=== PATIENT | female | born 1940 | race Caucasian/White ===

== ENCOUNTER 2016-08-12 07:19 | Inpatient (IN) | payer MEDICARE, OTHER ==
[~2016-08-12] VITALS: Ht 160 cm; Wt 56.5 kg
[2016-08-12] VITALS (9 sets, daily range): BP systolic 169–202; BP diastolic 69–111; PULSE 73–138; RESP 17–20; O2SAT 94–98
[~2016-08-12 07:19] MED LIST: CREST10T PO; EVI60 PO; FISH; UBID1CAP PO
--- NOTE | 2016-08-12 07:26 | ED.REPORT ---
HPI-Stroke / CVA Aug 12, 2016 ED Provider: Juan Boyle MD 76 year old female with a history of vertigo presents to the ER accompanied by her complaining of slurred speech and right leg weakness with concern for stroke. Last known normal early yesterday evening. She states that symptoms onset with dizziness, followed by difficulty with word finding and slurred speech. Last night she could not sleep due to stress related to her symptoms. When she attempted to get up to use the bathroom around 04:00 today she was unable to get out of bed due to the weakness in her right lower extremity. Patient denies history of similar. She took 81mg ASA last night around 23:00. Nursing Notes Stated Complaint: POSSIBLE STROKE SYMPTOMS Nursing Notes Reviewed: Yes ([employer], [employer] not reconciled) Allergies: Coded Allergies: Tetanus Vaccines and Toxoid (Verified Allergy, Severe, 02/08/12) Uncoded Allergies: PENCILLEN (Allergy, Severe, 02/08/12) SULFA (Allergy, Severe, 02/08/12) Scheduled Raloxifene-Expunged Drug, Do Not Renew! (Evista-Expunged Drug, Do Not Renew!) 60 Mg Tablet 60 MG PO DAILY (Reported) Rosuvastatin-Expunged Drug, Do Not Renew! (Crestor-Expunged Drug, Do Not Renew! ) 10 Mg Tablet 10 MG PO DAILY (Reported) Miscellaneous Medications Fish Oil-Expunged Drug, Do Not Renew! (Fish Oil-Expunged Drug, Do Not Renew!) Cap (Reported) Ubidecar/Fish Oil/Elkins-3/Ilya (Coq-10 & Fish Oil Softgel) 1 Each Capsule 1 EACH PO (Reported) General Time Seen by Provider: 07:25 Chief Complaint Weakness, Slurred speech Right-sided, Leg right Hx Obtained From: Patient Arrived By: Walk-in Time last known well Early evening yesterday Sudden in Onset?: No Symptom Duration: Since onset Progression Since Onset: Gradually worsening Similar Sx Previous: No Risk Factors NIH Stroke Scale Level of Consciousness: Alert and responsive (0) Ask Month & Age: Both questions right (0) Open/Close Eyes/Hand Boiler Riveter: Performs both tasks (0) Horizontal EO Movements: None (0) Visual [place]: No visual loss (0) Facial Palsy: Normal symmetry (0) Right Arm Motor Drift (10s): No drift 10 sec (0) Left Arm Motor Drift (10s): No drift 10 sec (0) Right Leg Motor Drift (5s): No drift 5 sec (0) (Patient reports that she needs to work harder to keep leg elevated.) Left Leg Motor Drift (5s): No drift 5 sec (0) Limb Ataxia FNF/Heel-Yip: No ataxia (0) Sensation (Arms/Legs/Face): No sensory loss (0) Language Aphasia: No aphasia, normal (0) Dysarthria: No dysarthria, normal (0) ( and patient report mild slurring.) Extinction/Inattention: No exctinct/inattent (0) NIHSS Score: 0 Time NIHSS Performed: 07:31 Date NIHSS Performed: Aug 12, 2016 )( CVA Risk Stratification Age >60No EtOH use, No Hypertension, No Prior CVA/TIA, No Smoking Risk factors reviewed Past Medical History Past Medical History Paroxysmal vertigo Past Surgical History Partial thyroidectomy Smoking History Former Smoker Social History Nicorette occasionally. Alcohol Use: Denies alcohol use Ambulatory Status Independent Review of Systems Respiratory: Denies: Non-productive cough, Shortness of breath Cardiovascular: Denies: Chest pain GI: Denies: Nausea Neurologic: Reports: Confusion, Focal weakness (Right Lower Extremity), Slurred speech, Weakness, Denies: Headache Complete sys rev & neg: except as marked. Physical Exam Initial Vital Signs Vital Signs (First) Date Time Temp Pulse Resp B/P Pulse Ox O2 Delivery O2 Flow Rate FiO2 08/12/16 07:29 36.4 87 17 202/111 98 Room Air Initial VS: Reviewed, Unavailable Extremities: Vascular intact, Neuro intact, No swelling, No tenderness Psychiatric: Mood/affect normal, Behavior normal, Normal thought content General/Constitutional: Awake, Alert, Well appearing, Well developed, Well nourished Behavior: Positive: Anxious Head / Eyes: Normocephalic, PERRL, EOMI Neck: Supple, Full range of motion, No swelling, Non-tender, No carotid bruit Respiratory / Chest: Breath sounds NL, Breath sounds = bilat, No respiratory distress, No rales, No rhonchi, No wheezing Cardiovascular: Heart rate NL, Regular rhythm, Heart sounds NL, No murmurs, Peripheral circulation NL Neurologic: Oriented X3, Speech NL, No motor deficits, No sensory deficits, CN II - XII intact See NIH Stroke Scale in the Risk section of this note. Interpretation & Diagnostics Lab Results Interpretation Result Diagram: 08/12/16 0753 08/12/16 0753 Test 08/12/16 07:53 08/12/16 08:13 White Blood Count 9.5th/mm3 (3.8-10.1) Red Blood Count 4.44mil/mm3 (3.90-5.20) Hemoglobin 13.2g/dL (12.0-15.6) Hematocrit 40.1% (35.0-46.0) Mean Corpuscular Volume 90.3fL (81-100) Mean Corpuscular Hemoglobin 29.7pg (27.0-35.0) Mean Corpuscular Hemoglobin Concent 32.9% (32.0-37.0) Red Cell Distribution Width 12.7% (12.3-15.4) Platelet Count 331bil/L (150-400) Neutrophils (%) (Auto) 58.7% (40-74) Lymphocytes (%) (Auto) 29.2% (14-46) Monocytes (%) (Auto) 9.2% (4-12) Eosinophils (%) (Auto) 2.2% (0-5) Basophils (%) (Auto) 0.3% (0-3) Prothrombin Time 10.0sec (8.1-12.5) Prothromb Time International Ratio 0.94ratio Activated Partial Thromboplast Time 26.2sec (22.8-33.0) Sodium Level 139mEq/L (134-144) Potassium Level 3.8mEq/L (3.5-5.2) Chloride Level 103mEq/L (97-108) Carbon Dioxide Level 20mmol/L (18-29) Blood Urea Nitrogen 13mg/dL (8-27) Creatinine 0.76mg/dL (0.57-1.00) Estimat Glomerular Filtration Rate 107mL/min (>59) Glucose Level 156mg/dL (60-99) Calcium Level 8.3mg/dL (8.5-10.1) Total Bilirubin 0.2mg/dL (0.0-1.2) Aspartate Amino Transf (AST/SGOT) 24U/L (0-50) Alanine Aminotransferase (ALT/SGPT) 16U/L (0-32) Alkaline Phosphatase 60U/L (25-165) Troponin T < 0.010ug/L (0.0-0.011) Total Protein 6.6g/dL (6.4-8.4) Albumin 3.8g/dL (3.4-5.0) Urine Color Straw (YELLOW) Urine Appearance Hazy (CLEAR,HAZY) Urine pH 7.0 (5.0-8.0) Urine Specific [place] 1.005 (1.003-1.035) Urine Protein Negativemg/dL (NEG,TRACE) Urine Glucose (UA) Negativemg/dL (NEGATIVE) Urine Ketones Negativemg/dL (NEGATIVE) Urine Occult Blood Trace (NEGATIVE) Urine Nitrite Negative (NEGATIVE) Urine Bilirubin Negative (NEGATIVE) Urine Urobilinogen Normalmg/dL (NORMAL) Urine Leukocyte Esterase Negative (NEGATIVE) Urine RBC 0-2/hpf (0-2) Urine WBC 0-5/hpf (0-5) Urine Epithelial Cells Occasional/hpf (NONE-MOD) Urine Crystals None seen (NONE SEEN) Urine Bacteria None/hpf (NONE-FEW) Urine Hyaline Casts None/lpf (NONE) Urine Granular Casts None seen (NONE SEEN) Urine Waxy Casts None seen (NONE SEEN) Urine Red Blood Cell Casts None seen (NONE SEEN) Urine White Blood Cell Casts None seen (NONE SEEN) Urine Mucus None seen (None Seen) Urine Trichomonas None seen (NONE SEEN) Urine Yeast None (NONE SEEN) Urinalysis Comment None Urine Culture Reflexed Not indicated Lab Results Interpretation: CBC normal CMP normal Coagsnormal UA negative ECG Interpretation ECG Interpretation: Sinus rhythm, rate 77 No dysrhythmias, no ischemic changes Time: 08:00 Interpreted by: ED physician CT Head Interpretation IMPRESSION: 1. Small hypodense foci in the left external capsule and thalamus suggestive of lacunar infarcts of indeterminate acuity. If clinical concern persists for an acute infarct, recommend further evaluation with MRI. 2. No acute intracranial hemorrhage or mass effect. Dictated by: David Ordonez M.D. on 08/12/2016 at 9:17 Approved by: David Ordonez M.D. on 08/12/2016 at 9:17 Study: Head CT no contrast Interpretation / Wet Read by: Interpret - Radiologist Re-Eval/Medical Decision Med Decision/Clinical Course This is a 76-year-old female presents with signs and symptoms of a stroke. Yesterday afternoon, so the patient presents well outside the TPA window, also has contraindications of a low NIH scale. The patient presents complaining that she has got a stroke, and is developed some slight difficulty with word finding, and some right lower extremity weakness that was increased to the point that she had difficulty ambulating earlier this morning which wanted to go to the bathroom. Symptoms are better now, she does not feel that her speech is completely normal-although the abnormalities is extremely subtle with very rare with finding, and when actually performing the leg which component of the NIH stroke scale she passes it without difficulty. The wound performing motor testing, the patient has to work harder to lift the right leg that she does the left common however she has no drifts so she scored no loss of points on the NIH stroke scale. She has risk factors of hypercholesterolemia on statin therapy. It does shank turner she takes low-dose aspirin (she inititially declined beong on such medicines ) daily. She is an ex-smoker quit many years ago, and she is presents severely hypertensive-reports she measures her blood pressure daily and is usually a systolic between 120 and 1:30, normal diastolic-without prior history of hypertension. The patient appears well. Again she has over a multivitamin minute interview just a couple times where she positives for just a microseconds to find the right word, and in general her speech is fluent, but when I tried to the he says as well that he can notice his speech is not entirely at her baseline. She does have some weakness of the right leg, even though it does not lose points on the night stroke scale. Stated the patient does not meet criteria for TPA. No contrast head CT revealed no hemorrhage, subacute infarct cannot be excluded since symptoms started yesterday. EKG demonstrates a sinus rhythm. Patient declines having a chest x-ray performed, given she has no cardiopulmonary symptoms at this time, she reports a negative chest x-ray at her PCPs office 2 months ago, so I am not finding a reason to press for one in the ED at this time. The patient past her speech screen, and she received aspirin in the Ed. (It Does later shank turner that she is on low-dose daily, so the patient may be better served by transition to clopidogrel) At this point the plan is admission to the hospital for continued workup and management. An MRI has been ordered. Case is discussed with the hospitalist. Patient presented with severe hypertension, but this improved without intervention it is below the level for requiring medication for possible stroke protocol. (150-160 systolic at time of admit) Source of Hx: Old records Re-Evaluation/Progress #1: Time of Eval: 07:38 Re-Evaluation/Progress Note: Discussed plan to admit. Patient understands and agrees to the plan. Re-Evaluation/Progress #2: Time of Eval: 09:48 Re-Evaluation/Progress Note: Discussed CT results and updated patient on the plan of care. Consultation : Referral / Consult Name: Jair Horowitz MD Consulted With: Hospitalist Call Returned at: 09:30 Claims Analyst: Agrees with eval, Agrees with plan, Accepts admit Counseled Regarding: Diagnosis, Lab results, Need for admission Patient Discharge & Departure Impression: Primary Impression: CVA (cerebral vascular accident) CVA mechanism: unspecified Qualified Code: I63.9 - Cerebral infarction, unspecified Additional Impression: HTN (hypertension) Hypertension type: unspecified secondary hypertension Hypertension goal: unspecified goal Qualified Code: I15.9 - Secondary hypertension, unspecified Disposition: ADMITTED TO HOSPITAL Discharge Condition All VS Reviewed: Yes Condition: Stable Referrals: Richard Greenberg MD (PCP) Scribe Attestation Portions of this note were transcribed by Marlyn Almodovar. I, Dr. Boyle, personally performed the history, physical exam and medical decision-making; I reviewed and confirmed the accuracy of the information in the transcribed note. Signed by: Rojas Garner. 08/12/2016, 09:48. copies to: Richard Greenberg MD, Matthew F MD Aug 12, 2016 07:26 MARLYN ALMODOVAR Aug 12, 2016 07:41
[2016-08-12 08:28] LABS: BASOPHILS % (AUTO) 0.3 % (0-3); EOSINOPHILS % (AUTO) 2.2 % (0-5); MONOCYTES % (AUTO) 9.2 % (4-12); Mean Corpuscular Hemoglobin 29.7 pg (27.0-35.0); Mean Corpuscular Volume 90.3 fL (81-100); NEUTROPHILS % (AUTO) 58.7 % (40-74); Platelet Count 331 bil/L (150-400)
[2016-08-12 08:47] LABS: INR 0.94 ratio
[2016-08-12 09:02] LABS: TROPONIN T < 0.010 ug/L (0.0-0.011)
[2016-08-12 09:08] LABS: APPEARANCE,URINE HAZY (CLEAR,HAZY); COLOR,URINE STRAW (YELLOW); OCCULT BLOOD,URINE TRACE (NEGATIVE); UROBILINOGEN,URINE NORMAL (NORMAL)
--- NOTE | 2016-08-12 09:19 | DRSVH ---
PROCEDURE: CT BRAIN WITHOUT CONTRAST ([id number]) INDICATIONS: Ensvnu-[id number]-lxzfa weakness and slurred speech. TECHNIQUE: Noncontrast 4.5 mm thick angled axial sections acquired from the foramen magnum to the vertex, with c oronal reformats. COMPARISON: None. FINDINGS: Image quality: Excellent. CSF spaces: Basal cisterns are patent. No extra-axial fluid collections. Ventricles are normal in size and shape. Brain: No intracranial hemorrhage, mass, or mass effect. There are small foci of hypodensity in the left coronary and thalamus compatible with prior lacunar infarcts of indeterminate acuity. There ar e a few additional indistinct scattered foci of white matter hypoattenuation compatible with mild chr onic small vessel ischemic changes. Vergara-white matter interface is preserved. Skull and face: Calvarium and visualized facial bones appear intact, without suspicious lesions. Sinuses: Visualized sinuses and mastoids are clear. IMPRESSION: 1. Small hypodense foci in the left external capsule and thalamus suggestive of lacunar infarcts of indeterminate acuity. If clinical concern persists for an acute infarct, recommend further evaluatio n with MRI. 2. No acute intracranial hemorrhage or mass effect. Dictated by: David Ordonez M.D. on 08/12/2016 at 9:17 Approved by: David Ordonez M.D. on 08/12/2016 at 9:17
[2016-08-12] MEDS ORDERED: 0.9% Sodium Chloride 1,000 ML IV SCH (10:02)
[2016-08-12] MEDS ORDERED: Alum-Mag Hydrox-Simeth 30 mL Suspension PO PRN ×2 (10:05→10:45)
[2016-08-12] MEDS ORDERED: Ondansetron 2 mg/mL 2 mL Inj IVPUSH PRN ×2 (10:05→10:45)
[2016-08-12] MEDS ORDERED: Polyethylene Glycol (PEG) 17 Gm Powder PO PRN (10:45)
--- NOTE | 2016-08-12 11:18 | DRSVH ---
PROCEDURE: MRI STROKE PROTOCOL ([id number]) Pre- and post-contrast brain MRI, non-contrast brain MR angiogram, pre- and postcontrast neck MR ivana ogram INDICATIONS: expressive aphasia, R leg weakness TECHNIQUE: Brain: Noncontrast axial T1 spin echo, axial T2 fast spin echo, sagittal and axial FLAIR, coronal T2 fast spin echo, axial gradient echo, axial diffusion and ADC through the brain. After the administr ation of contrast, axial 3D VIBE of the cranial vasculature and brain. Brain MRA: Non-contrast 3-D time of flight MR angiogram, with multiple tbwtphn-lxkfavgld-gdgokjycjs (MIP) reformats performed. Neck MRA: Axial and sagittal TruFISP through the neck. Coronal dynamic MR angiogram during administ ration of contrast in the arterial and venous phases, with 3-dimenstional dqkulrq-unumeqyos-xsqtzahte n (MIP) reformats constructed from subtraction images. COMPARISON: None. FINDINGS: Image quality: Partially degraded by motion artifact. BRAIN: CSF spaces: Ventricles are normal in size and shape. Basal cisterns are patent. No extra-axial flu id collections. Brain: No intracranial bleeds or mass effects. Vergara-white matter interface is normal. Diffusion we ighted images demonstrate 2 small, less than 10 mm diameter regions of elevated signal intensity with in the left basal ganglia, which demonstrate moderate FLAIR signal elevation, consistent with a subac nisqually infarct. There is a mild degree of cerebral white loss. Mild patchy high FLAIR signal within the periventricular and subcortical white matter is present, consistent with small vessel ischemic diseas e. Brainstem appears normal. Normal intravascular flow voids are present. No abnormal intracranial enhancement. Skull and face: Calvarial marrow signal is normal. Orbits appear normal. Sinuses: Sinuses and mastoids are clear. BRAIN MR ANGIOGRAM: Anterior circulation: Intracranial internal carotid arteries are normal in size and enhancement. Th e flow within the paired anterior cerebral arteries is normal and symmetric. The flow within the mid dle cerebral arteries is normal and symmetric. The anterior communicating artery is seen. No stenos es, occlusions, or aneurysms. Posterior circulation: The visualized portions of the vertebral arteries demonstrate normal caliber, and join to form a normal appearing basilar artery. The flow within the posterior cerebral arteries is normal and symmetric. No stenoses, occlusions, or aneurysms. NECK MR ANGIOGRAM: Vascular structures: The thoracic aortic arch is widely patent, and there is standard branching anato my. The innominate and right subclavian arteries are patent. Right vertebral artery is patent. Right common carotid artery is patent. Right internal and external carotid arteries are patent. Left common carotid artery is patent. Left external carotid artery is patent. Left internal carotid a rtery origin is patent. Left internal carotid arteries not well seen within its midportion roughly 40 -60 mm distal to its origin,, but is otherwise patent. Left subclavian artery is patent. Left vertebral artery is patent. Miscellaneous: Pre-contrast images through the neck demonstrate a 20 mm diameter high T2 intensity l eft thyroid mass. IMPRESSION: BRAIN MRI: 1. Small subacute infarcts within the left basal ganglia. 2. Volume loss and small vessel ischemic disease. BRAIN MR ANGIOGRAM: Negative cerebral MR angiography. NECK MR ANGIOGRAM: 1. Patent right internal carotid artery. Suboptimally visualized left internal carotid artery, which is patent as visualized. 2. Patent bilateral vertebral arteries. 3. Indeterminate left thyroid mass, which could be further assessed with ultrasound, if clinically in dicated. The estimate of stenosis included in the report of the imaging study was calculated using the NASCET method Dictated by: Kaylene Santiago M.D. on 08/12/2016 at 11:16 Approved by: Kaylene Santiago M.D. on 08/12/2016 at 11:16
--- NOTE | 2016-08-12 11:26 | NUR ---
Admission Patient arrived from ED via WC approx 1050 with spouse at bedside. Oriented patient to room and hospital policies. Orders received for chest xray. Patient declines to have this done. Informed patient of need of one and risks of not obtaining image and patient declines. notified. ST notified of patient arrival to floor.
[2016-08-12] MEDS ORDERED: RALO60TA PO (11:52)
[2016-08-12] MEDS ORDERED: CREST10T PO (11:53)
[2016-08-12] MEDS ORDERED: OMEG1000 PO (11:54)
[2016-08-12] MEDS ORDERED: ASPI81TA3 PO (11:55)
[2016-08-12] MEDS ORDERED: CHOL100043 PO (11:56)
[2016-08-12] MEDS ORDERED: UBID1CAP52 PO (11:57)
[2016-08-12 12:50] LABS: Magnesium 1.9 mg/dL (1.6-2.6)
--- NOTE | 2016-08-12 15:34 | NUR ---
Evaluation completed. Please go to "Notes" then click on "Assessments and Notes" (bottom left corner of screen). Then select appropriate discipline tab on top of screen.
--- NOTE | 2016-08-12 18:32 | NUR ---
Evaluation completed. Please go to "Notes" then click on "Assessments and Notes" (bottom left corner of screen). Then select appropriate discipline tab on top of screen.
--- NOTE | 2016-08-12 20:55 | PCM.HPMED ---
Subjective Date of Service Aug 12, 2016 Primary Provider: Admitting Physician: Jair Horowitz MD Primary Care Physician: Richard Greenberg MD Attending Physician: Jair Horowitz MD Admit Status: From the Emergency Department, Full Admit, Admit to Green Team Chief Complaint: "I thought I was having a stroke" History of Present Illness: Patient is a 76-year-old white female with history of benign positional vertigo who was in her usual state of health until recently she has been having some lightheadedness. Then at the cardiopulmonary physical therapist's office yesterday she was writing a check and was having difficulty writing. She began feeling lightheaded again and it was different than her feeling that she gets when she has benign positional vertigo she realized it was not that. Then last night she was having difficulty writing and her right leg felt "very heavy". She then noticed that she was not speaking properly kept looking for words to say. Her right leg continued to feel heavy. Early this morning she got up to go to the bathroom and she lost her balance could not walk that is when she decided that her needed to bring her to the emergency room. Patient was seen by Dr. Juan Boyle. Patient had a noncontrast head CT which revealed no hemorrhage , Subacute infarct could not be excluded since symptoms started yesterday. Patient declined to have a chest x-ray performed she reported a negative chest x -ray at her primary care physician's office 2 months ago and continues to refuse to have a chest x-ray. Patient was admitted to the hospitalist service for further evaluation and treatment. An MRI scan was ordered following the stroke protocol. Review of Systems: General: The patient is having difficulty finding the words she wants to say. HEENT: Patient has a headache from being up so many hours. Patient has no diplopia, patient has no changes in vision. Patient has no problems with her ears, nose(other than postnasal drip) or throat. Patient has known dental problems and has her own teeth and she has no problems with her teeth. Patient has no pharyngitis or history of thrush. Neck: Patient has no stiffness in the neck. Patient has no lymphadenopathy. Patient has no problems with her neck. She has had the right lobe of her thyroid removed. And has thyroid nodules in the remaining thyroid have been worked up by ultrasound and her primary care doctor is well aware of them per her history. Pulmonary: Patient has shortness of breath when [place] the mountains. She has no cough, no expectoration of sputum. He has no pleurisy. Patient has no chest pain. Patient has no history of asthma. She denies having COPD. however , she then admits to having emphysema. Cardiovascular: Patient has no chest pain. Patient has a history of a heart murmur, and years ago was told she had a mitral valve prolapse. Patient has palpitations occasionally when she lays on her left side.. Patient has no history of myocardial infarction. Patient has no history of coronary artery disease. Patient has never had a stress test. Gastrointestinal: Patient has no history of hepatitis A, B or C. Patient has no history of peptic ulcer disease. Patient has no history of gastroesophageal reflux disease. Patient has no history of nausea, vomiting, or diarrhea. Patient has no history of hematemesis, hematochezia, or melena. Patient has no history of colitis. He does state that she has irritable bowel syndrome or "IBS ". She states that this presented self with diarrhea for several days and then goes away. In this continues to cycle. Renal: Patient has no history of kidney disease. No history of kidney problems. Genitourinary: Patient has no history of dysuria, or incontinence. He does have urinary frequency especially after she lays down and go to sleep she has to get up numerous times to go to the bathroom. Patient has no previous history of genitourinary problems. Musculoskeletal: Patient has no history of muscular skeletal problems. Neurologic: Patient has no previous history of stroke, no history of seizure, no history of TIA. Psychiatric: Patient has no history of psychiatric problems. The remainder of the entire review of systems was reviewed with patient and is as mentioned above otherwise negative. Allergies Coded Allergies: Tetanus Vaccines and Toxoid (Verified Allergy, Severe, 02/08/12) Uncoded Allergies: PENCILLEN (Allergy, Severe, 02/08/12) SULFA (Allergy, Severe, 02/08/12) Home Medications Scheduled Raloxifene-Expunged Drug, Do Not Renew! (Evista-Expunged Drug, Do Not Renew!) 60 Mg Tablet 60 MG PO DAILY (Reported) Rosuvastatin-Expunged Drug, Do Not Renew! (Crestor-Expunged Drug, Do Not Renew! ) 10 Mg Tablet 10 MG PO DAILY (Reported) Miscellaneous Medications Fish Oil-Expunged Drug, Do Not Renew! (Fish Oil-Expunged Drug, Do Not Renew!) Cap (Reported) Ubidecar/Fish Oil/Brandywine-3/Ilya (Coq-10 & Fish Oil Softgel) 1 Each Capsule 1 EACH PO (Reported) PMH Patient has a history of benign positional vertigo or paroxysmal vertigo. Patient has a history of osteoarthritis. Patient may have a history of gastroesophageal reflux disease which she describes as an occasional "epigastric air bubble ". Osteoarthritis Osteoporosis of the spine Osteopenia of the hips Hyperlipidemia Hypertriglyceridemia Surgical History Jen bilateral cataract surgery 4 years ago Patient had one wisdom tooth removed Patient had a tonsillectomy Family History Her father of dementia at 73 Her mother of lung cancer the 42 Her brother of myocardial infarction in his 40s Social History Occupation: retired Hx Alcohol Use: No (patient used to drink when she would go to bars however she quit 30 years ago when she quit going to bars.) Hx Substance Use: No Hx Tobacco Use: Yes Smoking Status: Former Smoker (patient smoked at least one pack a day for approximately 30 years. She quit years ago) Living Arrangement: with Family Exam Vital Signs Vital Sign - Last Date Time Temp Pulse Resp B/P Pulse Ox O2 Delivery O2 Flow Rate FiO2 08/12/16 17:45 36.4 83 20 201/79 94 Room Air Exam General: The patient is in no apparent distress. She is resting in bed comfortably. HEENT: Head is atraumatic normocephalic. Eyes: Pupils are equally round and reactive to light and accommodation. Extraocular muscles are intact. Sclera are white anicteric. Subconjunctival mucosa is pink. Ears and nose are unremarkable. Oropharynx: There is no mucosal lesions, there is no thrush, there is no pharyngitis. Neck: Is supple, there are no nodes, or masses or tenderness. Chest: Is clear to auscultation and percussion. There are no significant rales , rhonchi, wheezes or rubs. Heart: Rate, rhythm is regular. There is grade 1 to 2/6 systolic ejection murmur heard at the left sternal border. There is no rub or gallop. Abdomen: Good bowel sounds are present. Abdomen is soft, nontender, no organomegaly or masses were appreciated. Extremities: Are symmetrical and well perfused. There is no edema, there is no cellulitis, no rash. Neurologic: There are no focal neurological deficits. Cranial nerves II through XII are intact. There are no sensory or motor deficits. Psychiatric: Patients mood is calm and shows no sign of agitation. Genital: Deferred Rectal: Deferred Lab and Diagnostics Result Diagram: 08/12/16 0753 08/12/16 1115 X-Rays, CTs and MRIs PROCEDURE: MRI STROKE PROTOCOL ([id number]) Pre- and post-contrast brain MRI, non-contrast brain MR angiogram, pre- and postcontrast neck MR angiogram INDICATIONS: expressive aphasia, R leg weakness TECHNIQUE: Brain: Noncontrast axial T1 spin echo, axial T2 fast spin echo, sagittal and axial FLAIR, coronal T2 fast spin echo, axial gradient echo, axial diffusion and ADC through the brain. After the administration of contrast, axial 3D VIBE of the cranial vasculature and brain. Brain MRA: Non-contrast 3-D time of flight MR angiogram, with multiple maximum- intensity-projection (MIP) reformats performed. Neck MRA: Axial and sagittal TruFISP through the neck. Coronal dynamic MR angiogram during administration of contrast in the arterial and venous phases, with 3-dimenstional wlvbceq-zzgrehytk-zuxlmfsait (MIP) reformats constructed from subtraction images. COMPARISON: None. FINDINGS: Image quality: Partially degraded by motion artifact. BRAIN: CSF spaces: Ventricles are normal in size and shape. Basal cisterns are patent. No extra-axial fluid collections. Brain: No intracranial bleeds or mass effects. Vergara-white matter interface is normal. Diffusion weighted images demonstrate 2 small, less than 10 mm diameter regions of elevated signal intensity within the left basal ganglia, which demonstrate moderate FLAIR signal elevation, consistent with a subacute infarct. There is a mild degree of cerebral white loss. Mild patchy high FLAIR signal within the periventricular and subcortical white matter is present, consistent with small vessel ischemic disease. Brainstem appears normal. Normal intravascular flow voids are present. No abnormal intracranial enhancement. Skull and face: Calvarial marrow signal is normal. Orbits appear normal. Sinuses: Sinuses and mastoids are clear. BRAIN MR ANGIOGRAM: Anterior circulation: Intracranial internal carotid arteries are normal in size and enhancement. The flow within the paired anterior cerebral arteries is normal and symmetric. The flow within the middle cerebral arteries is normal and symmetric. The anterior communicating artery is seen. No stenoses, occlusions, or aneurysms. Posterior circulation: The visualized portions of the vertebral arteries demonstrate normal caliber, and join to form a normal appearing basilar artery. The flow within the posterior cerebral arteries is normal and symmetric. No stenoses, occlusions, or aneurysms. NECK MR ANGIOGRAM: Vascular structures: The thoracic aortic arch is widely patent, and there is standard branching anatomy. The innominate and right subclavian arteries are patent. Right vertebral artery is patent. Right common carotid artery is patent. Right internal and external carotid arteries are patent. Left common carotid artery is patent. Left external carotid artery is patent. Left internal carotid artery origin is patent. Left internal carotid arteries not well seen within its midportion roughly 40-60 mm distal to its origin,, but is otherwise patent. Left subclavian artery is patent. Left vertebral artery is patent. Miscellaneous: Pre-contrast images through the neck demonstrate a 20 mm diameter high T2 intensity left thyroid mass. IMPRESSION: BRAIN MRI: 1. Small subacute infarcts within the left basal ganglia. 2. Volume loss and small vessel ischemic disease. BRAIN MR ANGIOGRAM: Negative cerebral MR angiography. NECK MR ANGIOGRAM: 1. Patent right internal carotid artery. Suboptimally visualized left internal carotid artery, which is patent as visualized. 2. Patent bilateral vertebral arteries. 3. Indeterminate left thyroid mass, which could be further assessed with ultrasound, if clinically indicated. The estimate of stenosis included in the report of the imaging study was calculated using the NASCET method Dictated by: Kaylene Santiago M.D. on 08/12/2016 at 11:16 Approved by: Kaylene Santiago M.D. on 08/12/2016 at 11:16 PROCEDURE: CT BRAIN WITHOUT CONTRAST ([id number]) INDICATIONS: Iakdcj-vuzhk-jlzwu weakness and slurred speech. TECHNIQUE: Noncontrast 4.5 mm thick angled axial sections acquired from the foramen magnum to the vertex, with coronal reformats. COMPARISON: None. FINDINGS: Image quality: Excellent. CSF spaces: Basal cisterns are patent. No extra-axial fluid collections. Ventricles are normal in size and shape. Brain: No intracranial hemorrhage, mass, or mass effect. There are small foci of hypodensity in the left coronary and thalamus compatible with prior lacunar infarcts of indeterminate acuity. There are a few additional indistinct scattered foci of white matter hypoattenuation compatible with mild chronic small vessel ischemic changes. Vergara-white matter interface is preserved. Skull and face: Calvarium and visualized facial bones appear intact, without suspicious lesions. Sinuses: Visualized sinuses and mastoids are clear. IMPRESSION: 1. Small hypodense foci in the left external capsule and thalamus suggestive of lacunar infarcts of indeterminate acuity. If clinical concern persists for an acute infarct, recommend further evaluation with MRI. 2. No acute intracranial hemorrhage or mass effect. Dictated by: David Ordonez M.D. on 08/12/2016 at 9:17 Approved by: David Ordonez M.D. on 08/12/2016 at 9:17 12-lead ECG Normal sinus rhythm with a rate of 77. Assessment & Plan Patient is a 76-year-old white female with history of benign positional vertigo who was in her usual state of health until recently she has been having some lightheadedness. Then at the cardiopulmonary physical therapist's office yesterday she was writing a check and was having difficulty writing. She began feeling lightheaded again and it was different than her feeling that she gets when she has benign positional vertigo she realized it was not that. Then last night she was having difficulty writing and her right leg felt "very heavy". She then noticed that she was not speaking properly kept looking for words to say. Her right leg continued to feel heavy. Early this morning she got up to go to the bathroom and she lost her balance could not walk that is when she decided that her needed to bring her to the emergency room. Patient was seen by Dr. Juan Boyle. Patient had a noncontrast head CT which revealed no hemorrhage , Subacute infarct could not be excluded since symptoms started yesterday. Patient declined to have a chest x-ray performed she reported a negative chest x -ray at her primary care physician's office 2 months ago and continues to refuse to have a chest x-ray. Patient was admitted to the hospitalist service for further evaluation and treatment. An MRI scan was ordered following the stroke protocol. # Acute Left basal ganglial cerebrovascular accident, present on admission -Right lower extremity weakness present on admission -Expressive aphasia present on admission -Stroke protocol MRI ordered and shows the following: BRAIN MRI: 1. Small subacute infarcts within the left basal ganglia. 2. Volume loss and small vessel ischemic disease. BRAIN MR ANGIOGRAM: Negative cerebral MR angiography. NECK MR ANGIOGRAM: 1. Patent right internal carotid artery. Suboptimally visualized left internal carotid artery, which is patent as visualized. 2. Patent bilateral vertebral arteries. 3. Indeterminate left thyroid mass, which could be further assessed with ultrasound, if clinically indicated. -We will consult physical therapy, occupational therapy and speech therapy. -We will check echocardiogram with bubble study. -We will continue patient on Crestor. We will check lipid panel in a.m. -As patient was already on aspirin prior to the cerebrovascular accident, it is likely that patient will need to take Plavix. We will speak with neurology to get their opinion. # Patient has a history of tobacco use and quit approximately 30 years ago. -Patient refuses to have a standard chest x-ray screening. -She stated that she had a negative chest x-ray in her physician's office 2 months ago. # History of hyperlipidemia and hypertriglyceridemia. -We will check lipid panel in a.m. -Continue Crestor -Consider therapy for hypertriglyceridemia. # History of osteoporosis and osteopenia. -Continue Evista # History of benign positional vertigo -Currently not an issue at this time. Disposition. Patient was admitted as a full inpatient as is expected that she will be her more than 2 midnights, for the appropriate diagnostic test and to receive the appropriate treatments Pain Evaluation: Adequate Pain Control GI Prophylaxis: Not indicated VTE Prophylaxis: Sub-Q Enoxaparin VTE Mechanical Devices: Intermittant Pneumatic CD Resuscitation Status: CPR: Attempt Resuscitation Jair Horowitz MD Aug 12, 2016 20:55
[2016-08-13] VITALS (8 sets, daily range): BP systolic 170–205; BP diastolic 68–98; PULSE 73–90; RESP 18–20; O2SAT 93–96
[2016-08-13] MEDS ORDERED: 0.9% Sodium Chloride 1,000 ML ONE (06:32)
[2016-08-13] MEDS ORDERED: 0.9% Sodium Chloride 1,000 ML IV ONE (06:50)
[2016-08-13 06:56] LABS: BASOPHILS % (AUTO) 0.3 % (0-3); EOSINOPHILS % (AUTO) 1.1 % (0-5); MONOCYTES % (AUTO) 7.7 % (4-12); Mean Corpuscular Hemoglobin 29.9 pg (27.0-35.0); Mean Corpuscular Volume 89.8 fL (81-100); NEUTROPHILS % (AUTO) 66.9 % (40-74); Platelet Count 326 bil/L (150-400)
--- NOTE | 2016-08-13 07:11 | NUR ---
Neuro Changes pt reports symptoms getting worse at 06:30. pt states her right arm and leg are weaker than earlier, pt states her speech is slurring more. MD made aware, new orders obtained for a fluid bolus and maintenance. report given to AM on-coming shift of patient's status. continuing to monitor.
[2016-08-13 07:19] LABS: Magnesium 1.9 mg/dL (1.6-2.6)
[2016-08-13] MEDS: 0.9% Sodium Chloride 1,000 ML IV SCH ×2 (08:18→22:35)
[2016-08-13 13:58] LABS: APPEARANCE,URINE HAZY (CLEAR,HAZY); COLOR,URINE STRAW (YELLOW); PH,URINE 7.5 (5.0-8.0)
[2016-08-13 13:59] LABS: OCCULT BLOOD,URINE TRACE (NEGATIVE); UROBILINOGEN,URINE NORMAL (NORMAL)
--- NOTE | 2016-08-13 14:50 | NUR ---
Social Work-initial assessment: Data:See initial assessment. Pt is a 76 y/o female who was admitted on 08/12/16 for CVA per H&P. Pt's insurance is [employer] and [facility] and PCP is Richard Irene MD. EMR Reviewed. JOHN met with pt at bedside, SW role explained. Pt is alert and oriented x3. Pt resides at home with her in an RV where she remains independent with ADLS. Pt does not drive and uses a cane at baseline. Pt has no HH or SNF history. Pt has no fpc care or VA benefits. SW discussed DPOA/advanced directive, pt states she has never completed this, Pt is interested in information, which SW has provided. PT worked with pt and they are recommend SNF. Pt is mod/max assist and only ambulated 3 feet. JOHN discussed with pt and provided her with SNF choice list. Pt would like referral to both [facility] and [facility]. JOHN called [facility] who is not contracted with pt;s insurance. JOHN called [facility] and they do. JOHN faxed facesheet and PASRR to [facility], access given. Paperwork and PASRR in the chart. SW will continue to follow. Assessment:Pt who would benefit from SNF. Plan: [facility] has been faxed. Insurance authorization will need to be obtained.Paperwork and PASRR in the chart. SW will continue to follow. CARYL Martin Addendum: 08/13/16 at 1457 by IDANIA WINTER Amended: Links added.
--- NOTE | 2016-08-13 14:57 | NUR ---
SNF Choice list provided. CARYL Martin
--- NOTE | 2016-08-13 14:57 | NUR ---
[facility] [place] can accept with Dr. Eckert follow. Insurance authorization will need to be obtained. CARYL Martin
--- NOTE | 2016-08-13 15:07 | NUR ---
Off unit Pt off unit at 1455 to MAYITO [employer] notified. Addendum: 08/13/16 at 1509 by HEAVEN ANGUIANO RN Pt back on unit at 1510, [employer] notified.
--- NOTE | 2016-08-13 15:40 | DRSVH ---
[facility] [address] [place] [address] Echocardiogram Report Name: JOSUE RAMIREZ Study Date: 08/13/2016 Height: 63 in Hospital Exam Location: [facility] Weight: 124 lb Gender: Female BSA: 1.6 m2 : 1940 Age: 76 yrs BP: 177/82 mmHg Reason For Study: CVA Ordering Physician: Performed By: Devi Gould Referring Physician: Julio Greenberg Interpretation Summary Borderline concentric left ventricular hypertrophy with ejection fraction 60- 65%. Mild mitral regurgitation. Procedure: A two-dimensional transthoracic echocardiogram with color flow and Doppler was performed. The study quality was technically adequate. There is no prior echocardiogram noted for this patient. A saline contrast injection was performed to assess for cardiac shunting. The patient was in normal sinus rhythm during the exam. The patient had occasional PVCs during the exam. Left Ventricle: There is borderline concentric left ventricular hypertrophy. The left ventricular cavity is small. The ejection fraction is estimated to be 60-65%. There are no focal wall motion abnormalities. Diastolic function could not be accurately assessed due to contradictory data. Right Ventricle: The right ventricle is normal in size and function. Atria: Both atria are normal in size. The interatrial septum is intact with no evidence for an atrial septal defect. There is no Doppler evidence for an interatrial shunt. Injection of contrast documented no interatrial shunt. Mitral Valve: The mitral valve is normal in structure and function. There is mild mitral regurgitation. Aortic Valve: The aortic valve is normal in structure and function. No aortic regurgitation is present. Tricuspid Valve: The tricuspid valve is normal in structure and function. There is trace tricuspid regurgitation. The right ventricular systolic pressure is estimated at least 28 mmHg assuming a right atrial pressure of 3 mm Hg. Pulmonic Valve: The pulmonic valve is not well seen, but is grossly normal. There is a trace or physiologic amount of pulmonic regurgitation. Great Vessels: The aortic root is normal size. The ascending aorta is normal in size. The aortic arch is normal in size. The IVC is of normal diameter and collapses greater than 50% with a sniff. This suggests a low right atrial pressure of 3 mm Hg. Pericardium/ Pleura There is no pericardial effusion. MMode/2D Measurements & Calculations LVIDd: 3.5 cm LA dimension: 3.5 cm RA long axis LVOT diam: 1.7 cm LVIDs: 2.2 cm Ao root diam FS: 36.7 % LA A2 area: 13.8 cm RA area EPSS: 0.15 cm LA A4 area: 18.0 cm asc Aorta Diam IVSd: 0.87 cm LA length (vol) : 12.0 cm LVPWd: 1.1 cm RA vol Ao Arch Diam (Prox LA vol: 40.6 ml : 23.7 ml Trans): 2.6 cm LA vol index RA : 15.0 mm2 IVC diam: 1.1 cm LV rowley. diameter/BSA LV sys. diameter/BSA RVD1 (basal) RVD2 (mid): 2.5 cm (cm/m^2): 2.2 (cm/m^2): 1.4 Doppler Measurements & Calculations Ao V2 max MV E max rosalio MV E/A: 0.98 TR max rosalio : 130.7 cm/sec : 109.4 cm/sec Med Peak E' Rosalio : 251.1 cm/sec Ao max PG MV A max rosalio TR max PG : 6.8 mmHg : 111.3 cm/sec E/E' med: 26.3 : 25.2 mmHg Ao mean PG MV P1/2t: 59.3 msec Lat Peak E' Rosalio PA V2 max : 88.3 cm/sec LVOT Max Rosalio E/E' lat: 16.5 PA mean PG : 107.3 cm/sec E/e' average: 21.4 Pulm A Revs Dur PA Accel Time DEX(I,D): 1.9 cm : 0.09 sec sev ratio MV A dur: 0.11 sec MV dec time MV P1/2t max rosalio Ao V2 mean LV V1 max PG : 0.20 sec : 92.5 cm/sec MVA(P1/2t): 3.7 cm2 Ao V2 VTI: 30.8 cm LV V1 VTI DEX(V,D): 1.9 cm2 : 25.7 cm PA V2 mean DEX indexed to BSA Pulm A Revs Dur - MV : 55.3 cm/sec (cm^2/m^2): 1.2 A Dur: -0.01 msec Electronically signed by: Radhika Cuenca on Reading Physician:08/13/2016 03:39 PM
--- NOTE | 2016-08-13 15:58 | DRSVH ---
PROCEDURE: CT BRAIN WITHOUT CONTRAST ([id number]) INDICATIONS: CVA with increasing weakness TECHNIQUE: Noncontrast 4.5 mm thick angled axial sections acquired from the foramen magnum to the vertex, with c oronal reformats. COMPARISON: [facility], MR, MR STROKE PROTOCOL, 08/12/2016, 10:02. [facility] l, CT, CT BRAIN WO CON, 08/12/2016, 7:51. FINDINGS: Image quality: Excellent. CSF spaces: Basal cisterns are patent. No extra-axial fluid collections. The ventricles are symmet louann in size and shape. Brain: No intracranial bleeds or masses. There is cerebral volume loss for age, with resultant vent ricular and sulcal prominence. There are periventricular and deep white matter chronic small vessel ischemic changes. Small hypodensities involving the left external capsule/left guardado radiata have in creased slightly in size compared to prior examinations concerning for slightly increased area of inf arction. Skull and face: Calvarium and visualized facial bones appear intact, without suspicious lesions. Sinuses: Visualized sinuses and mastoids are clear. IMPRESSION: 1. Left external capsule/left guardado radiata hypodensities slightly increased in size concerning for slightly enlarged area of infarction. 2. No cranial hemorrhage. Dictated by: Merle Interiano MD, PhD on 08/13/2016 at 15:56 Approved by: Merle Interiano MD, PhD on 08/13/2016 at 15:56
[2016-08-13] MEDS: Omega-3 Fatty Acids 1,000 mg Capsule PO SCH (17:28)
[2016-08-13] MEDS ORDERED: UBIDECARENONE PO SCH (17:30)
[2016-08-13] MEDS ORDERED: VIT E ACETATE PO SCH (17:30)
--- NOTE | 2016-08-13 18:43 | NUR ---
Activity/neuro/BP Pt increasingly weak on R side, utilizing BSC in an effort to conserve energy and remain safe. Pt aware to call for assist getting OOB. Bed alarm on when not in room. Pt continues to refuse SCD's. MD on unit, aware that BP has been elevated majority of this shift. Per MD, if BP is >220 systolic, >110 diastolic, page MD for orders. Pt resting comfortably, bed in lowest, locked position and call light in reach.
--- NOTE | 2016-08-13 20:50 | DRSVH ---
PROCEDURE: X-RAY CHEST, TWO VIEWS ([id number]) INDICATIONS: Possible Infiltrate TECHNIQUE: 2 views of the chest were acquired. COMPARISON: None. FINDINGS: Surgical changes and devices: None. Lungs and pleura: No pleural effusions or pneumothorax. Lungs are clear. Mediastinum: Mediastinal contours are normal. Heart size is normal. Bones and chest wall: No suspicious bony abnormalities. Soft tissues appear unremarkable. IMPRESSION: No acute pulmonary process. Dictated by: Roseann Arora M.D. on 08/13/2016 at 20:48 Approved by: Roseann Arora M.D. on 08/13/2016 at 20:48
[2016-08-14] VITALS (8 sets, daily range): BP systolic 141–194; BP diastolic 63–82; PULSE 59–81; RESP 16–20; O2SAT 93–97
--- NOTE | 2016-08-14 00:13 | PCM.PNMED ---
Subjective Date of Service Aug 14, 2016 Subjective Patient complains that she is increased difficulty speaking, she has increased weakness of her right arm and she has increased weakness of her right leg. Exam Vital Signs Vital Sign - Last Date Time Temp Pulse Resp B/P Pulse Ox O2 Delivery O2 Flow Rate FiO2 08/13/16 20:38 36.7 73 20 205/68 96 Room Air Intake and Output 08/13/16 08/13/16 08/14/16 Cumulative From/Thru 15:00 23:00 07:00 08/12/16 07:29 - 08/13/16 18:30 Intake Total 991 ml 672 ml 2063 ml Output Total 1620 ml 2220 ml Balance 991 ml -948 ml -157 ml Intake Oral 672 ml 1072 ml IV Total 991 ml 991 ml Output Urine Total 1620 ml 2220 ml # Voids 7 7 # Bowel Movements 2 3 Exam General: The patient is very concerned about increasing weakness.. She is otherwise in no apparent distress. HEENT: Head is atraumatic normocephalic. Eyes: Pupils are equally round and reactive to light and accommodation. Extraocular muscles are intact. Sclera are white anicteric. Subconjunctival mucosa is pink. Ears and nose are unremarkable. Oropharynx: There is no mucosal lesions, there is no thrush, there is no pharyngitis. Neck: Is supple, there are no nodes, or masses or tenderness. Chest: Is clear to auscultation and percussion. There are no significant rales , rhonchi, wheezes or rubs. Heart: Rate, rhythm is regular. There is grade 1 to 2/6 systolic ejection murmur heard at the left sternal border. There is no rub or gallop. Abdomen: Good bowel sounds are present. Abdomen is soft, nontender, no organomegaly or masses were appreciated. Extremities: Are symmetrical and well perfused. There is no edema, there is no cellulitis, no rash. Neurologic: There is increased weakness of the right upper extremity and right lower extremity. Patient has slightly increased expressive aphasia Cranial nerves II through XII are intact. There are no sensory deficits noted. There is no dysmetria. Psychiatric: Patients mood is calm and shows no sign of agitation. Genital: Deferred Rectal: Deferred Lab and Diagnostics Result Diagram: 08/13/1616 08/13/1616 X-Rays, CTs and MRIs PROCEDURE: MRI STROKE PROTOCOL ([id number]) Pre- and post-contrast brain MRI, non-contrast brain MR angiogram, pre- and postcontrast neck MR angiogram INDICATIONS: expressive aphasia, R leg weakness TECHNIQUE: Brain: Noncontrast axial T1 spin echo, axial T2 fast spin echo, sagittal and axial FLAIR, coronal T2 fast spin echo, axial gradient echo, axial diffusion and ADC through the brain. After the administration of contrast, axial 3D VIBE of the cranial vasculature and brain. Brain MRA: Non-contrast 3-D time of flight MR angiogram, with multiple maximum- intensity-projection (MIP) reformats performed. Neck MRA: Axial and sagittal TruFISP through the neck. Coronal dynamic MR angiogram during administration of contrast in the arterial and venous phases, with 3-dimenstional tqtgoyr-wzbhpkswi-mtstwtohmx (MIP) reformats constructed from subtraction images. COMPARISON: None. FINDINGS: Image quality: Partially degraded by motion artifact. BRAIN: CSF spaces: Ventricles are normal in size and shape. Basal cisterns are patent. No extra-axial fluid collections. Brain: No intracranial bleeds or mass effects. Vergara-white matter interface is normal. Diffusion weighted images demonstrate 2 small, less than 10 mm diameter regions of elevated signal intensity within the left basal ganglia, which demonstrate moderate FLAIR signal elevation, consistent with a subacute infarct. There is a mild degree of cerebral white loss. Mild patchy high FLAIR signal within the periventricular and subcortical white matter is present, consistent with small vessel ischemic disease. Brainstem appears normal. Normal intravascular flow voids are present. No abnormal intracranial enhancement. Skull and face: Calvarial marrow signal is normal. Orbits appear normal. Sinuses: Sinuses and mastoids are clear. BRAIN MR ANGIOGRAM: Anterior circulation: Intracranial internal carotid arteries are normal in size and enhancement. The flow within the paired anterior cerebral arteries is normal and symmetric. The flow within the middle cerebral arteries is normal and symmetric. The anterior communicating artery is seen. No stenoses, occlusions, or aneurysms. Posterior circulation: The visualized portions of the vertebral arteries demonstrate normal caliber, and join to form a normal appearing basilar artery. The flow within the posterior cerebral arteries is normal and symmetric. No stenoses, occlusions, or aneurysms. NECK MR ANGIOGRAM: Vascular structures: The thoracic aortic arch is widely patent, and there is standard branching anatomy. The innominate and right subclavian arteries are patent. Right vertebral artery is patent. Right common carotid artery is patent. Right internal and external carotid arteries are patent. Left common carotid artery is patent. Left external carotid artery is patent. Left internal carotid artery origin is patent. Left internal carotid arteries not well seen within its midportion roughly 40-60 mm distal to its origin,, but is otherwise patent. Left subclavian artery is patent. Left vertebral artery is patent. Miscellaneous: Pre-contrast images through the neck demonstrate a 20 mm diameter high T2 intensity left thyroid mass. IMPRESSION: BRAIN MRI: 1. Small subacute infarcts within the left basal ganglia. 2. Volume loss and small vessel ischemic disease. BRAIN MR ANGIOGRAM: Negative cerebral MR angiography. NECK MR ANGIOGRAM: 1. Patent right internal carotid artery. Suboptimally visualized left internal carotid artery, which is patent as visualized. 2. Patent bilateral vertebral arteries. 3. Indeterminate left thyroid mass, which could be further assessed with ultrasound, if clinically indicated. The estimate of stenosis included in the report of the imaging study was calculated using the NASCET method Dictated by: Kaylene Santiago M.D. on 08/12/2016 at 11:16 Approved by: Kaylene Santiago M.D. on 08/12/2016 at 11:16 PROCEDURE: CT BRAIN WITHOUT CONTRAST ([id number]) INDICATIONS: Lnlndh-rrntg-soafs weakness and slurred speech. TECHNIQUE: Noncontrast 4.5 mm thick angled axial sections acquired from the foramen magnum to the vertex, with coronal reformats. COMPARISON: None. FINDINGS: Image quality: Excellent. CSF spaces: Basal cisterns are patent. No extra-axial fluid collections. Ventricles are normal in size and shape. Brain: No intracranial hemorrhage, mass, or mass effect. There are small foci of hypodensity in the left coronary and thalamus compatible with prior lacunar infarcts of indeterminate acuity. There are a few additional indistinct scattered foci of white matter hypoattenuation compatible with mild chronic small vessel ischemic changes. Vergara-white matter interface is preserved. Skull and face: Calvarium and visualized facial bones appear intact, without suspicious lesions. Sinuses: Visualized sinuses and mastoids are clear. IMPRESSION: 1. Small hypodense foci in the left external capsule and thalamus suggestive of lacunar infarcts of indeterminate acuity. If clinical concern persists for an acute infarct, recommend further evaluation with MRI. 2. No acute intracranial hemorrhage or mass effect. Dictated by: David Ordonez M.D. on 08/12/2016 at 9:17 Approved by: David Ordonez M.D. on 08/12/2016 at 9:17 PROCEDURE: CT BRAIN WITHOUT CONTRAST ([id number]) INDICATIONS: CVA with increasing weakness TECHNIQUE: Noncontrast 4.5 mm thick angled axial sections acquired from the foramen magnum to the vertex, with coronal reformats. COMPARISON: [facility], MR, MR STROKE PROTOCOL, 08/12/2016, 10:02. [facility], CT, CT BRAIN WO CON, 08/12/2016, 7:51. FINDINGS: Image quality: Excellent. CSF spaces: Basal cisterns are patent. No extra-axial fluid collections. The ventricles are symmetric in size and shape. Brain: No intracranial bleeds or masses. There is cerebral volume loss for age , with resultant ventricular and sulcal prominence. There are periventricular and deep white matter chronic small vessel ischemic changes. Small hypodensities involving the left external capsule/left guardado radiata have increased slightly in size compared to prior examinations concerning for slightly increased area of infarction. Skull and face: Calvarium and visualized facial bones appear intact, without suspicious lesions. Sinuses: Visualized sinuses and mastoids are clear. IMPRESSION: 1. Left external capsule/left guardado radiata hypodensities slightly increased in size concerning for slightly enlarged area of infarction. 2. No cranial hemorrhage. Dictated by: Merle Interiano MD, PhD on 08/13/2016 at 15:56 Approved by: Merle Interiano MD, PhD on 08/13/2016 at 15:56 12-lead ECG Normal sinus rhythm with a rate of 77. Cardiac Echo Impressions Echocardiogram Report Name: JOSUE RAMIREZ Study Date: 08/13/2016 Height: 63 in Hospital Exam Location: [facility] Weight: 124 lb Gender: Female BSA: 1.6 m2 : 1940 Age: 76 yrs BP: 177/82 mmHg Reason For Study: CVA Ordering Physician: Performed By: Devi Gould Referring Physician: Julio Greenberg Interpretation Summary Borderline concentric left ventricular hypertrophy with ejection fraction 60- 65%. Mild mitral regurgitation. Assessment & Plan Patient is a 76-year-old white female with history of benign positional vertigo who was in her usual state of health until recently she has been having some lightheadedness. 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 She began feeling lightheaded again and it was different than her feeling that she gets when she has benign positional vertigo she realized it was not that. Then last night she was having difficulty writing and her right leg felt "very heavy". She then noticed that she was not speaking properly kept looking for words to say. Her right leg continued to feel heavy. Early this morning she got up to go to the bathroom and she lost her balance could not walk that is when she decided that her needed to bring her to the emergency room. Patient was seen by Dr. Juan Boyle. Patient had a noncontrast head CT which revealed no hemorrhage , Subacute infarct could not be excluded since symptoms started yesterday. Patient declined to have a chest x-ray performed she reported a negative chest x -ray at her primary care physician's office 2 months ago and continues to refuse to have a chest x-ray. Patient was admitted to the hospitalist service for further evaluation and treatment. An MRI scan was ordered following the stroke protocol. # Acute Left basal ganglial cerebrovascular accident, present on admission and ongoing. -The CT scan of the brain without contrast today showed: "Left external capsule/ left guardado radiata hypodensities slightly increased in size concerning for slightly enlarged area of infarction. No cranial hemorrhage". -Right lower extremity weakness present on admission has worsened today. -Expressive aphasia present on admission has worsened today. -Right upper extremity weakness now present -Stroke protocol MRI ordered and shows the following: BRAIN MRI: 1. Small subacute infarcts within the left basal ganglia. 2. Volume loss and small vessel ischemic disease. BRAIN MR ANGIOGRAM: Negative cerebral MR angiography. NECK MR ANGIOGRAM: 1. Patent right internal carotid artery. Suboptimally visualized left internal carotid artery, which is patent as visualized. 2. Patent bilateral vertebral arteries. 3. Indeterminate left thyroid mass, which could be further assessed with ultrasound, if clinically indicated. -We will consult physical therapy, occupational therapy and speech therapy. -We will check echocardiogram with bubble study. -We will continue patient on Crestor. We will check lipid panel in a.m. -As patient was already on aspirin prior to the cerebrovascular accident -As there is no hemorrhagic conversion today and CT scan will add Plavix. -Spoke with Dr. New by neurology and asked him to consult on the patient. He agrees with the above plan. # Patient has a history of tobacco use and quit approximately 30 years ago. -Patient refuses to have a standard chest x-ray screening. -She stated that she had a negative chest x-ray in her physician's office 2 months ago. # History of hyperlipidemia and hypertriglyceridemia. -We will check lipid panel in a.m. -Continue Crestor -Consider therapy for hypertriglyceridemia. # History of osteoporosis and osteopenia. -Continue Evista # History of benign positional vertigo -Currently not an issue at this time. Disposition. Patient likely to be her another 48 hours to 72 hours. Would recommend transfer to a rehabilitation center after discharge. Will await Dr. New's recommendations. Dr. Mayo will follow in a.m. for the hospitalist service. Pain Evaluation: Adequate Pain Control GI Prophylaxis: Not indicated VTE Prophylaxis: Sub-Q Enoxaparin VTE Mechanical Devices: Intermittant Pneumatic CD Resuscitation Status: CPR: Attempt Resuscitation Jair Horowitz MD Aug 14, 2016 00:13
[2016-08-14] MEDS: 0.9% Sodium Chloride 1,000 ML IV SCH ×2 (02:43→09:07)
[2016-08-14 07:44] LABS: BASOPHILS % (AUTO) 0.2 % (0-3); EOSINOPHILS % (AUTO) 0.9 % (0-5); MONOCYTES % (AUTO) 8.6 % (4-12); Mean Corpuscular Hemoglobin 30.1 pg (27.0-35.0); Mean Corpuscular Volume 89.5 fL (81-100); NEUTROPHILS % (AUTO) 71.6 % (40-74); Platelet Count 340 bil/L (150-400)
[2016-08-14] MEDS: Omega-3 Fatty Acids 1,000 mg Capsule PO SCH (18:27)
--- NOTE | 2016-08-14 19:05 | NUR ---
Student Nurse Shift Note Pt is A/O x3, responds appropriately, voiding q1hr with 1-2 person assist from bed to BSC. Has questions of what is happening to her from here on in regards to the loss of strength on her right side. SN suggested to her and the next shift nurse that she have a consult with either therapy (occupational and physical), and a social sciences professor tomorrow morning. Pt was receptive. is visiting, lights dim, watching TV with bed in low position and call light within reach.
--- NOTE | 2016-08-14 19:35 | PCM.PNMED ---
Subjective Date of Service Aug 14, 2016 Subjective Nadira reports that the right side of her face feels a bit more numb than it did yesterday, otherwise she is feeling about the same as yesterday. Exam Vital Signs Vital Sign - Last Date Time Temp Pulse Resp B/P Pulse Ox O2 Delivery O2 Flow Rate FiO2 08/14/16 16:35 37.0 64 20 159/82 96 Room Air Intake and Output 08/13/16 08/13/16 08/14/16 Cumulative From/Thru 15:00 23:00 07:00 08/12/16 07:29 - 08/14/16 06:17 Intake Total 991 ml 672 ml 150 ml 2213 ml Output Total 1620 ml 1600 ml 3820 ml Balance 991 ml -948 ml -1450 ml -1607 ml Intake Oral 672 ml 150 ml 1222 ml IV Total 991 ml 991 ml Output Urine Total 1620 ml 1600 ml 3820 ml # Voids 7 7 # Bowel Movements 2 3 Exam General: Female patient laying in bed with a a flaccid right lower arm. Awake, alert, and oriented. She is mildly anxious though in no acute distress. HEENT: Head is atraumatic normocephalic. Pupils are equally round and reactive to light and accommodation. Extraocular muscles are intact. Sclera anicteric. No deviation of the tongue or uvula. Mucus membranes moist. Neck: Supple without masses or tenderness. Chest: Good inspiratory effort without rales, rhonchi, wheezes. Heart: RRR without murmur, rub, or gallop Abdomen: Normoactive bowel tones. Abdomen is soft, nontender, nondistended. Extremities: No edema, cyanosis, or clubbing. Neurologic: 5/5 left hip strength with flexion and extension. 5/5 left ankle strength with dorsiflexion and plantarflexion. 3/5 right hip strength with flexion, 5/5 with extension. 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 Cranial nerves II through XII are intact. There are no sensory deficits noted. Occasional slurring of speech. Mild right sided facial droop inferior to the eyebrows. Sensation to light touch intact on both upper extremities. Temperature sensation intact in all 4 extremities. IVs and Medications Medications Reviewed: Medications were reviewed in detail Lab and Diagnostics Result Diagram: 08/14/1670408/14/16704 X-Rays, CTs and MRIs CT brain without contrast: IMPRESSION: 1. Left external capsule/left guardado radiata hypodensities slightly increased in size concerning for slightly enlarged area of infarction. 2. No cranial hemorrhage. Dictated by: Merle Interiano MD, PhD on 08/13/2016 at 15:56 12-lead ECG Normal sinus rhythm with a rate of 77. Assessment & Plan Nadira is a 76yo female with history of benign positional vertigo who was in her usual state of health until recently she has been having some lightheadedness and other neurological symptoms over the course of 2 days for which she presented to the ER and was found to have a left basal ganglia infarction. 1. Acute- subacute Left basal ganglial cerebrovascular accident, present on admission with worsening on 08/13/16 - Physical therapy, occupational therapy and speech therapy evaluations. - Continue Rosuvastatin. - After discussion with the patient today, she admitted that she was not taking aspirin more than 1-2 days per week - Continue clopidogrel at this time - Dr New (neurology) has been consulted by Dr Horowitz (hospitalist) that cared for the patient yesterday. 2. History of tobacco use, >20 pack-yr-hx -The patient has repeatedly refused chest x-rays 3. Hyperlipidemia and hypertriglyceridemia. - Statin therapy as above in #1 4. History of osteoporosis and osteopenia. -Continue Evista Anticipate that the patient may need inpatient physical therapy rehabilitation. Awaiting Dr New's recommendations GI Prophylaxis: Not indicated VTE Prophylaxis: Sub-Q Enoxaparin VTE Mechanical Devices: Intermittant Pneumatic CD Resuscitation Status: CPR: Attempt Resuscitation Time spent 25 minutes Attending Statement I have seen and evaluated patient at bedside in addition to directly supervising care provided by resident physician. I agree with above documentation. Rosemary Payne DO Aug 14, 2016 19:35 Maldonado Burrows DO Aug 15, 2016 09:11
--- NOTE | 2016-08-14 21:55 | CONS ---
[address] [address] CONSULTATION REPORT PATIENT: JOSUE RAMIREZ : 1940 MR#: [id number] ADMIT: 08/12/2016 JOB ID: [id number] DATE OF SERVICE: 08/14/2016 CHIEF COMPLAINT: Sudden onset of right-sided weakness. REQUESTING PROVIDER: Dr. Horowitz. HISTORY OF PRESENT ILLNESS: The patient is a very pleasant, 76-year-old, right-handed woman with multiple medical problems including hypertension and hyperlipidemia who developed sudden onset of right upper and right lower extremity weakness. At that time, she was seen initially noted to have difficulty writing and her right leg felt heavy and she was dragging it, however, she went to bed and awoke at six o'clock in the morning and noted that she could not move the right side of her body. She does have a history of a reportedly benign thyroid nodule which was worked up as an outpatient. She also has a history of benign positional vertigo which responded to an Rogelio maneuver. 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 REVIEW OF SYSTEMS: A complete review of systems was performed. She reports that she has noticed improvement in her headaches. She reports that she is not having any headaches at this time. She does note she still has some degree of difficulty with word-finding, however, primarily notes dysarthria. She does have a history of dental illness however does have her own teeth. No recent dental infections. She reports in the distant past she was told she had a mitral valve prolapse. She does also have a history of irritable bowel syndrome. PAST MEDICAL HISTORY: As noted above, hypertension, hyperlipidemia, osteopenia, osteoporosis, osteoarthritis, gastroesophageal reflux disease, benign paroxysmal positional vertigo, history of reportedly benign thyroid nodule. ALLERGIES: 1. TETANUS VACCINE AND TOXOID. 2. PENICILLIN. 3. SULFA. HOME MEDICATIONS: 1. Aspirin 81 mg daily. 2. Raloxifene. 3. Rosuvastatin. 4. She also takes fish oil. PAST SURGICAL HISTORY: Status post bilateral cataract surgery. I was not too for smoke removed and she had a tonsillectomy. FAMILY HISTORY: Father had dementia. SOCIAL HISTORY: No tobacco, alcohol, or drugs. IMAGING: Her initial CT of the head demonstrated a small hypodense foci in the left external capsule and thalamus suggestive of lacunar infarcts of indeterminate acuity. A magnetic resonance imaging study of the brain stroke protocol was performed demonstrating small subacute infarcts within the left basal ganglia, volume loss and small vessel ischemic disease. A negative MRA was performed of the brain. MRA of the neck demonstrated patent right internal carotid artery. Suboptimally visualized left internal carotid artery which is patent is visualized, patent bilateral vertebral arteries and an indeterminate left thyroid mass. She had chest x-ray, which demonstrated no acute pulmonary process. She also had a CT of her head on August 13, 2016 demonstrating a left external capsule left guardado radiata. Hypodensities slightly increased in size. Concerning for slightly enlarged area of infarction with no cranial hemorrhage noted. LABORATORY: White blood cell count of 12.6, hemoglobin 13.8, hematocrit 41.1, platelets of 340. Chemistries: Sodium 141, potassium 4.2, chloride 104, bicarb was 24, BUN was 11. Creatinine was 0.85. Glucose 118. LFTs were within normal limits. TSH was 2.430. Coags PT was 10.0, INR 0.94 and PTT was 26.2. UA was occasional urine epithelial cells and straw color, otherwise negative. PHYSICAL EXAMINATION: Vital signs: Temperature 36.7, pulse of 79, respiratory rate of 16, blood pressure 182/63. Pulse oximetry 93% on room air. General: She is a well-developed, well-nourished woman in mild acute distress. Head: Normocephalic, atraumatic. Negative Kernig. Negative Brudzinski. Neck was supple. No carotid bruits were auscultated. Chest: Clear to auscultation. Heart: Regular rate and rhythm. Abdomen: Soft, nondistended, nontender. Extremities: No cyanosis, clubbing, or edema. NEUROLOGIC EXAMINATION: Mental status: She is awake, alert, oriented x3. Speech was dysarthric, however, there was some mild delay in word finding. However, no clear receptive or expressive aphasia was noted. Cranial nerves: Pupils equal, round, reactive to light. Extraocular movements were smooth and conjugate with no evidence of nystagmus. Face appeared symmetrical. Facial sensation was intact to light touch and temperature. Auditory sensation was intact to finger rub. Palatal elevation was symmetrical. Tongue was midline. Sternocleidomastoid and trapezii were 5/5 bilaterally. Motor: There was a dense hemiparesis of the right upper and right lower extremities. She was able to wiggle some of her toes of her right foot. Otherwise was unable to move the right upper extremity at all. Sensation was intact to light touch and temperature. Deep tendon reflexes were diminished throughout. There was a positive Babinski on the right. Coordination cannot be assessed on the right. However the [id number] was intact on the left with no evidence of dysmetria. Gait was deferred. IMPRESSION: Acute lacunar infarct of the left basal ganglia. Suspect that this is secondary to patient's stroke risk factors including hypertension and hyperlipidemia. She does report that she was taking aspirin 81 mg daily, however, may have forgotten to take this medication on several occasions up to several times a week and so may have been only taking this medication several times a week Her NIH stroke scale was a 4 for the right upper extremity and a 3 for the right lower extremity. One for dysarthria. Dysarthria. Her modified Rose score is 4 for moderately severe disability. Unable to attend her own bodily needs without assistance and unable to walk unassisted. RECOMMENDATIONS: Plavix 75 mg daily. May stop aspirin 81 mg daily. I would discontinue at this point, on Plavix 75 mg daily. I reviewed in detail the magnetic resonance angiogram of her head and neck and which did not demonstrate any areas of significant stenosis. In light of the increased risk of bleed associated with dual antiplatelet therapy in a patient with severe right hemiparesis at respite falls, recommend continuing only on Plavix 75 mg daily at this point. Recommend continuing optimization of control of stroke risk factors including hypertension and hyperlipidemia. Due to the severity of her stroke, I do recommended consideration for inpatient rehabilitation. I discussed this in detail with the patient and her . We discussed the importance of physical therapy. I and occupational therapy and rehabilitation. She also had an echocardiogram performed which demonstrated borderline concentric left ventricular hypertrophy with ejection fraction of 60% to 65% with mild mitral regurgitation. Telemetry strips have not revealed any evidence suggestive of 80 of atrial fibrillation. As per nursing staff. Thank you, again, Dr. Horowitz, for allowing me to participate in the care of your patient. I also recommend a fasting lipid profile to be performed tomorrow morning and I have ordered this test. I do believe that she would benefit from inpatient physical therapy rehabilitation given the severity of her stroke with a dense flaccid right Thank you, again, Dr. Horowitz, allowing me to participate in the care of your patient. Please feel free to contact me with any questions or concerns.
[2016-08-15 00:40] VITALS: BP 189/74; PULSE 74; RESP 20; O2SAT 93
[2016-08-15 04:57] VITALS: BP 183/71; PULSE 73; RESP 20; O2SAT 94
[2016-08-15 05:33] VITALS: PULSE 58
--- NOTE | 2016-08-15 06:40 | NUR ---
Neuros Patient continues to have right sided weakness. both right hand and leg are flaccid at this time. patient has mild right sided facial droop. speech slurred. 2PA to [facility]. Patients IVF d/c'd this shift. patient concerned about PO intake. beverages and jello at bedside were gone. Patient given more jello per request and encouraged to take PO.
[2016-08-15 06:50] LABS: BASOPHILS % (AUTO) 0.4 % (0-3); EOSINOPHILS % (AUTO) 1.5 % (0-5); MONOCYTES % (AUTO) 9.6 % (4-12); Mean Corpuscular Hemoglobin 29.8 pg (27.0-35.0); Mean Corpuscular Volume 89.5 fL (81-100); Platelet Count 307 bil/L (150-400)
[2016-08-15 08:00] VITALS: PULSE 64
[2016-08-15 09:15] VITALS: BP 165/67; PULSE 62; RESP 18; O2SAT 92
--- NOTE | 2016-08-15 10:56 | NUR ---
Spoke with Lisa online program coordinator at [facility] is working on [employer] auth. [facility] ran common working file and it is not showing [employer] as active. Lisa is working with Abby and will call me back with update. Updated PATENTED HOGSHEAD ASSEMBLER Addendum: 08/15/16 at 1137 by ISA LIMON CM [employer] authorization has been started by Lisa in admissions at [facility]
[2016-08-15 12:51] VITALS: BP 163/73; PULSE 71; RESP 20; O2SAT 93
--- NOTE | 2016-08-15 13:36 | NUR ---
[employer] Authorization is now in place. paged to complete orders for this patient to transfer to [facility] today. Updated BULLET ASSEMBLY PRESS SETTER OPERATOR
[2016-08-15] MEDS ORDERED: CLOP75TA28 PO (13:58)
--- NOTE | 2016-08-15 13:59 | NUR ---
Social Work: Continued d/c planning Data: Pt is on day 3 of hospitalization. EMR reviewed. BUILDING ARCHITECT met with pt and spouse regarding d/c plan. BUILDING ARCHITECT presented the information that pt has been accepted to go to [facility] and that PT thinks that inpt rehab may also be a good option for pt. Pt states that those options are too far away and that she would rather say in the [place] area. UR specialist has spoken with [facility] and has started the insurance authorization process, insurance has authorized the stay. BUILDING ARCHITECT will continue to follow. Assessment: Pt who is independent at baseline. Plan: Pt will d/c to [facility] today via cabulance. BUILDING ARCHITECT will continue to follow. CARYL Bhakta
--- NOTE | 2016-08-15 14:05 | PCM.DIMED ---
Discharge Instructions Date of Service Aug 15, 2016 Dates of Hospitalization Aug 12, 2016 at 09:38 Discharge Diagnosis Discharge Diagnosis 1. 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 Physical therapy, occupational therapy and speech therapy evaluation completed , in patient rehabilitation recommend. Plan on discharge to continue Rosuvastatin, transition to Plavix 75mg PO daily from previously taken Aspirin 81mg as per neurologist recommendation. . 2. History of tobacco use, >20 pack-yr-hx; benefits of cessation counseled. Options for assistance with quitting reviewed. Pt will consider. 3. Hyperlipidemia and hypertriglyceridemia; Statin therapy as above in #1 4. History of osteoporosis and osteopenia: Continue Evista Medication Instructions As noted above: Stop taking Aspirin with initiation of Plavix. Continue other medications as previously prescribed. Plavix may increase your risk of bleeding though it will also protect you from risk of future stroke. Monitor skin coloration for signs of bleeding, also note stool color, dark or bloody stools may be a sign of gastrointestinal bleeding. Diet Heart Healthy Activity Limited until seen by PCP Call your provider Shortness of breath, Chest pain, Weakness (unilateral) Patient Instructions Follow-up plan DC to in patient rehabilitation facility. Further FU to be scheduled prior to DC from rehab unit. Follow-up with PCP in: 2 weeks Attending's Statement FU with PCP as recommended on DC from rehabilitation facility. Likely 1-2 weeks. Maldonado Burrows DO Aug 15, 2016 14:05
--- NOTE | 2016-08-15 15:46 | NUR ---
Spoke with Sujatha at [facility] and does have a female bed but is unsure about [employer] contract. He is not able to accept patient under MCR if [employer] is showing primary and approving SNF stay. Spoke with Loly at [facility] and she has beds but does not contract with [employer] and would not be able to accept patient. Updated MOVIE STAR and MOVIE STAR Hospital Technician
--- NOTE | 2016-08-15 16:30 | NUR ---
Faxed orders to [facility] and they are arranging transport for 1700. Copies placed on chart. Updated BAKERY MACHINE MECHANIC and BAKERY MACHINE MECHANIC Pigskin Trimmer and RN.
--- NOTE | 2016-08-15 17:15 | NUR ---
Transfer Pt transferred to [facility], [facility], IV vickie D/Cd intact. Pt taken from [facility] in wheelchair by staff from [facility], Report called to [facility].
--- NOTE | 2016-08-15 17:18 | NUR ---
Final D/c D/A: MEDICAL CHIEF TECHNICIAN mgr. involved to discuss complications with insurance. Pts preference after research changed to [facility], however [employer] is not contracted. [facility] has provided an auth for the hospital stay and the SNF, [facility] unable to consider given this has been obtained despite pt/spouse willing to absorb the financial responsibility should they be wrong about insurance coverage. Lint Cleaner after many calls was provided with consistent information. It was determined that if there is a glitch, it could potentially be between [employer]'s database and [employer] spouse was provided the phone number for [employer] [phone]. Pt to continue with plan d/c to [facility] as originally planned as authorization has been obtained from [facility] with MCR as secondary. Spouse may potentially workout the insurance issue on Thursday and consider going to [facility]. PLAN: Pt to d/c for continued rehabilitation at [facility]. Spouse and pt aware of plan in agreement to move forward. CORRY Phillips
--- NOTE | 2016-08-15 19:32 | PCM.DC.MED ---
Discharge Summary Date of Service Aug 15, 2016 Dates of Hospitalization Date of Hospital Admission Aug 12, 2016 at 09:38 Date of Discharge: Aug 15, 2016 Providers: Admitting Physician: Jair Horowitz MD Primary Care Physician: Richard Greenberg MD Attending Physician: Jair Horowitz MD Diagnosis at Time of Discharge Diagnosis at Time of Discharge 1. 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 Physical therapy, occupational therapy and speech therapy evaluation completed , in patient rehabilitation recommend. Plan on discharge to continue Rosuvastatin, transition to Plavix 75mg PO daily from previously taken Aspirin 81mg as per neurologist recommendation. . 2. History of tobacco use, >20 pack-yr-hx; benefits of cessation counseled. Options for assistance with quitting reviewed. Pt will consider. 3. Hyperlipidemia and hypertriglyceridemia; Statin therapy as above in #1 4. History of osteoporosis and osteopenia: Continue Evista Procedures XRay, CTs & MRIs CT brain without contrast: IMPRESSION: 1. Left external capsule/left guardado radiata hypodensities slightly increased in size concerning for slightly enlarged area of infarction. 2. No cranial hemorrhage. Dictated by: Merle Interiano MD, PhD on 08/13/2016 at 15:56 MR stroke protocol: FINDINGS: Image quality: Partially degraded by motion artifact. BRAIN: CSF spaces: Ventricles are normal in size and shape. Basal cisterns are patent. No extra-axial fluid collections. Brain: No intracranial bleeds or mass effects. Vergara-white matter interface is normal. Diffusion weighted images demonstrate 2 small, less than 10 mm diameter regions of elevated signal intensity within the left basal ganglia, which demonstrate moderate FLAIR signal elevation, consistent with a subacute infarct. There is a mild degree of cerebral white loss. Mild patchy high FLAIR signal within the periventricular and subcortical white matter is present, consistent with small vessel ischemic disease. Brainstem appears normal. Normal intravascular flow voids are present. No abnormal intracranial enhancement. Skull and face: Calvarial marrow signal is normal. Orbits appear normal. Sinuses: Sinuses and mastoids are clear. BRAIN MR ANGIOGRAM: Anterior circulation: Intracranial internal carotid arteries are normal in size and enhancement. The flow within the paired anterior cerebral arteries is normal and symmetric. The flow within the middle cerebral arteries is normal and symmetric. The anterior communicating artery is seen. No stenoses, occlusions, or aneurysms. Posterior circulation: The visualized portions of the vertebral arteries demonstrate normal caliber, and join to form a normal appearing basilar artery. The flow within the posterior cerebral arteries is normal and symmetric. No stenoses, occlusions, or aneurysms. NECK MR ANGIOGRAM: Vascular structures: The thoracic aortic arch is widely patent, and there is standard branching anatomy. The innominate and right subclavian arteries are patent. Right vertebral artery is patent. Right common carotid artery is patent. Right internal and external carotid arteries are patent. Left common carotid artery is patent. Left external carotid artery is patent. Left internal carotid artery origin is patent. Left internal carotid arteries not well seen within its midportion roughly 40-60 mm distal to its origin,, but is otherwise patent. Left subclavian artery is patent. Left vertebral artery is patent. Miscellaneous: Pre-contrast images through the neck demonstrate a 20 mm diameter high T2 intensity left thyroid mass. IMPRESSION: BRAIN MRI: 1. Small subacute infarcts within the left basal ganglia. 2. Volume loss and small vessel ischemic disease. BRAIN MR ANGIOGRAM: Negative cerebral MR angiography. NECK MR ANGIOGRAM: 1. Patent right internal carotid artery. Suboptimally visualized left internal carotid artery, which is patent as visualized. 2. Patent bilateral vertebral arteries. 3. Indeterminate left thyroid mass, which could be further assessed with ultrasound, if clinically indicated. The estimate of stenosis included in the report of the imaging study was calculated using the NASCET method Dictated by: Kaylene Santiago M.D. on 08/12/2016 at 11:16 Chest xray: FINDINGS: Surgical changes and devices: None. Lungs and pleura: No pleural effusions or pneumothorax. Lungs are clear. Mediastinum: Mediastinal contours are normal. Heart size is normal. Bones and chest wall: No suspicious bony abnormalities. Soft tissues appear unremarkable. IMPRESSION: No acute pulmonary process. Dictated by: Roseann Arora M.D. on 08/13/2016 at 20:48 ECG 12 Lead Normal sinus rhythm with a rate of 77. Brief History Per H&P by Dr Horowitz: Patient is a 76-year-old white female with history of benign positional vertigo who was in her usual state of health until recently she has been having some lightheadedness. Then at the [employer] recru[employer]'s office yesterday she was writing a check and was having difficulty writing. She began feeling lightheaded again and it was different than her feeling that she gets when she has benign positional vertigo she realized it was not that. Then last night she was having difficulty writing and her right leg felt "very heavy". She then noticed that she was not speaking properly kept looking for words to say. Her right leg continued to feel heavy. Early this morning she got up to go to the bathroom and she lost her balance could not walk that is when she decided that her needed to bring her to the emergency room. Patient was seen by Dr. Juan Boyle. Patient had a noncontrast head CT which revealed no hemorrhage , Subacute infarct could not be excluded since symptoms started yesterday. Patient declined to have a chest x-ray performed she reported a negative chest x -ray at her primary care physician's office 2 months ago and continues to refuse to have a chest x-ray. Patient was admitted to the hospitalist service for further evaluation and treatment. An MRI scan was ordered following the stroke protocol. Hospital Course The following were addressed during this hospitalization: Nadira is a 76yo female with history of benign positional vertigo who was in her usual state of health until recently she has been having some lightheadedness and other neurological symptoms over the course of 2 days for which she presented to the ER and was found to have a left basal ganglia infarction. 1. 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 - Continued Rosuvastatin which the patient admitted to being noncompliant with at home due to being apathetic about it. - Dr New (neurology) consulted and recommended daily clopidogrel which was given 2. History of tobacco use, >20 pack-yr-hx -The patient repeatedly refused chest x-rays 3. Hyperlipidemia and hypertriglyceridemia. - Statin therapy as above in #1 was given 4. History of osteoporosis and osteopenia. -Continued her home dosing of Evista Exam Vital Signs (Last) Date Time Temp Pulse Resp B/P Pulse Ox O2 Delivery O2 Flow Rate FiO2 08/15/16 12:51 36.6 71 20 163/73 93 Room Air Exam On the date of discharge: General: Female patient laying in bed with a a flaccid right lower arm. Awake, alert, and oriented. She is mildly anxious though in no acute distress. HEENT: Head is atraumatic normocephalic. Pupils are equally round and reactive to light and accommodation. Extraocular muscles are intact. Sclera anicteric. No deviation of the tongue or uvula. Mucus membranes moist. Neck: Supple without masses or tenderness. Chest: Good inspiratory effort without rales, rhonchi, wheezes. Heart: RRR without murmur, rub, or gallop Abdomen: Normoactive bowel tones. Abdomen is soft, nontender, nondistended. Extremities: No edema, cyanosis, or clubbing. Neurologic: 5/5 left hip strength with flexion and extension. 5/5 left ankle strength with dorsiflexion and plantarflexion. 3/5 right hip strength with flexion, 5/5 with extension. 5/5 left upper extremity strength including clipper automatic strength. Cranial nerves II through XII are intact. There are no sensory deficits noted. Occasional slurring of speech. Mild right sided facial droop inferior to the eyebrows. Sensation to light touch intact on both upper extremities. Temperature sensation intact in all 4 extremities. Test 08/12/16 07:53 08/12/16 11:15 08/13/16 06:16 08/13/16 13:10 Prothrombin Time 10.0sec (8.1-12.5) Prothromb Time International Ratio 0.94ratio Activated Partial Thromboplast Time 26.2sec (22.8-33.0) Troponin T < 0.010ug/L (0.0-0.011) Pro-B-Type Natriuretic Peptide 235.9pg/mL (0-738) Magnesium Level 1.9mg/dL (1.6-2.6) Thyroid Stimulating Hormone (TSH) 2.430uIU/mL (0.450-4.500) Urine Color Straw (YELLOW) Urine Appearance Hazy (CLEAR,HAZY) Urine pH 7.5 (5.0-8.0) Urine Specific [place] 1.015 (1.003-1.035) Urine Protein Negativemg/dL (NEG,TRACE) Urine Glucose (UA) Negativemg/dL (NEGATIVE) Urine Ketones Negativemg/dL (NEGATIVE) Urine Occult Blood Trace (NEGATIVE) Urine Nitrite Negative (NEGATIVE) Urine Bilirubin Negative (NEGATIVE) Urine Urobilinogen Normalmg/dL (NORMAL) Urine Leukocyte Esterase Negative (NEGATIVE) Urine RBC 0-2/hpf (0-2) Urine WBC 0-5/hpf (0-5) Urine Epithelial Cells Occasional/hpf (NONE-MOD) Urine Crystals None seen (NONE SEEN) Urine Bacteria Few/hpf (NONE-FEW) Urine Hyaline Casts None/lpf (NONE) Urine Granular Casts None seen (NONE SEEN) Urine Waxy Casts None seen (NONE SEEN) Urine Red Blood Cell Casts None seen (NONE SEEN) Urine White Blood Cell Casts None seen (NONE SEEN) Urine Mucus None seen (None Seen) Urine Trichomonas None seen (NONE SEEN) Urine Yeast None (NONE SEEN) Urinalysis Comment None Urine Culture Reflexed Not indicated Test 08/15/16 06:05 White Blood Count 12.4th/mm3 (3.8-10.1) Red Blood Count 4.57mil/mm3 (3.90-5.20) Hemoglobin 13.6g/dL (12.0-15.6) Hematocrit 40.9% (35.0-46.0) Mean Corpuscular Volume 89.5fL (81-100) Mean Corpuscular Hemoglobin 29.8pg (27.0-35.0) Mean Corpuscular Hemoglobin Concent 33.3% (32.0-37.0) Red Cell Distribution Width 12.6% (12.3-15.4) Platelet Count 307bil/L (150-400) Neutrophils (%) (Auto) 71.0% (40-74) Lymphocytes (%) (Auto) 17.3% (14-46) Monocytes (%) (Auto) 9.6% (4-12) Eosinophils (%) (Auto) 1.5% (0-5) Basophils (%) (Auto) 0.4% (0-3) Sodium Level 141mEq/L (134-144) Potassium Level 4.1mEq/L (3.5-5.2) Chloride Level 103mEq/L (97-108) Carbon Dioxide Level 23mmol/L (18-29) Blood Urea Nitrogen 12mg/dL (8-27) Creatinine 0.79mg/dL (0.57-1.00) Estimat Glomerular Filtration Rate 102mL/min (>59) Glucose Level 127mg/dL (60-99) Calcium Level 8.8mg/dL (8.5-10.1) Total Bilirubin 0.4mg/dL (0.0-1.2) Aspartate Amino Transf (AST/SGOT) 28U/L (0-50) Alanine Aminotransferase (ALT/SGPT) 16U/L (0-32) Alkaline Phosphatase 57U/L (25-165) Total Protein 6.6g/dL (6.4-8.4) Albumin 4.0g/dL (3.4-5.0) Triglycerides Level 320mg/dL (0-149) Cholesterol Level 155mg/dL (100-199) LDL Cholesterol, Calculated 53.000mg/dL (0-99) VLDL Cholesterol 64.000mg/dL HDL Cholesterol 38mg/dL (>39) Cholesterol/HDL Ratio 4.08 (0.0-4.4) Discharge Medications Discharge Medications Cholecalciferol (Vitamin D3) (Vitamin D) 1,000 Unit Tablet 4,000 UNIT PO DAILYWD (Reported) Clopidogrel (Clopidogrel) 75 Mg Tablet 75 MG PO DAILY Prescribed by: MALDONADO BURROWS DO [place]-3 Fatty Acids (Fish Oil Concentrate) 1,000 Mg Capsule 1,000 MG PO DAILYWD (Reported) Raloxifene (Evista) 60 Mg Tablet 60 MG PO DAILYWD (Reported) Rosuvastatin Calcium (Crestor) 10 Mg Tablet 10 MG PO DAILYWD (Reported) Ubidecarenone/Vit E Acetate (Co Q-10 100 mg Softgel) 1 Each Capsule 2 EACH PO DAILYWD (Reported) Additional med instructions As noted above: Stop taking Aspirin with initiation of Plavix. Continue other medications as previously prescribed. Plavix may increase your risk of bleeding though it will also protect you from risk of future stroke. Monitor skin coloration for signs of bleeding, also note stool color, dark or bloody stools may be a sign of gastrointestinal bleeding. Followup Plan Follow-up plan Discharge to inpatient rehabilitation facility. Further Follow up to be scheduled prior to discharge from the rehab unit. Discharge Diet: Heart Healthy Discharge Activity: Limited until seen by PCP Follow-up Provider: Richard Greenberg MD Follow-up with PCP in: 2 weeks Time spent 40 minutes Attending Statement I have seen and evaluated patient at bedside in addition to directly supervising care provided by resident physician. I agree with above documentation. copies to: Richard Greenberg MD, Rachel M DO Jan 20, 2017 19:32 Maldonado Burrows DO Aug 16, 2016 12:12
== END 2016-08-15 17:18 | DRG 65 ==
LOC: SED 07:19 → MPC 09:38 → OBSVTOIN 09:38 → MPC 10:52
PROVIDERS: ADMIT Internal Medicine Infectious Disease; ATTEND Internal Medicine Infectious Disease
DX: I63.9 Cerebral infarction, unspecified (principal); G81.91 Hemiplegia, unspecified affecting right dominant side; I10 Essential (primary) hypertension; Z87.891 Personal history of nicotine dependence; R29.810 Facial weakness; R47.1 Dysarthria and anarthria; R40.2362 Coma scale, best motor response, obeys commands, at arrival to emergency department; H81.10 Benign paroxysmal vertigo, unspecified ear; R40.2252 Coma scale, best verbal response, oriented, at arrival to emergency department; R40.2142 Coma scale, eyes open, spontaneous, at arrival to emergency department; M81.0 Age-related osteoporosis without current pathological fracture; E78.1 Pure hyperglyceridemia; Z79.82 Long term (current) use of aspirin; Z91.19 Patient's noncompliance with other medical treatment and regimen